=== PATIENT | male | born 1945 | race Caucasian/White ===

== ENCOUNTER → 2019-09-15 | Outpatient (CLI) | payer MEDICARE, OTHER, SELFPAY ==
[2019-09-03 10:18] VITALS: BMI 30.9
--- NOTE | 2019-09-15 14:31 | ECHOD_ITS ---
Reason For Study: CP Procedure This was a 2D Doppler, Color Flow transthoracic echocardiogram. Exam performed in department. Left Ventricle Normal LV size. Moderate concentric left ventricular hypertrophy. Left ventricular systolic function is normal. The estimated ejection fraction is 60 %. Stage 1 diastolic dysfunction. No regional wall motion abnormalities noted. Right Ventricle Normal RV size. Normal systolic function. Atria Normal left atrium. Normal right atrium. Mitral Valve Normal mitral valve. Tricuspid Valve Normal tricuspid valve. Aortic Valve Trisinus/trileaflet aortic valve. Mild (1+) eccentric aortic valve insufficiency. Pulmonic Valve Normal pulmonic valve. Great Vessels Normal aortic root. The pulmonary artery is normal size. Normal inferior vena cava. Pericardium/Pleural No pericardial effusion. MMode/2D Measurements & Calculations LVIDd: 4.5 cm IVSd: 1.4 cm LA dimension: 4.0 cm LVIDs: 2.8 cm LVPWd: 1.5 cm FS: 38.1 % LAV(MOD-bp): 46.9 ml LA A4 area: 16.9 cm2 RA A4 area: 14.5 cm2 LAV(MOD-bp) Indexed: 21.3 ml/m2 LAV(MOD-sp2): 49.0 ml LAV(MOD-sp4): 40.7 ml Time Measurements MV dec time: 0.28 sec Doppler Measurements & Calculations MV E max farhad: 54.0 cm/sec Lat Peak E' Farhad: 6.5 cm/sec Med Peak E' Farhad: 4.4 cm/sec MV A max farhad: 69.1 cm/sec E/E' lat: 8.4 E/E' med: 12.3 MV E/A: 0.78 MV V2 max: 88.6 cm/sec MV P1/2t max farhad: 65.5 cm/sec Ao V2 max: 112.6 cm/sec MV max P.1 mmHg MV P1/2t: 105.3 msec Ao max P.1 mmHg MV V2 mean: 46.4 cm/sec MV dec slope: 182.2 cm/sec2 Ao V2 mean: 70.8 cm/sec MV mean P.0 mmHg MVA(P1/2t): 2.1 cm2 Ao mean P.3 mmHg MV V2 VTI: 28.9 cm Ao V2 VTI: 21.6 cm AI max farhad: 401.4 cm/sec LV V1 max: 97.3 cm/sec PA V2 max: 99.2 cm/sec AI max P.6 mmHg LV V1 max P.8 mmHg LV V1 mean P.4 mmHg AI dec slope: 135.2 cm/sec2 LV V1 mean: 52.8 cm/sec AI P1/2t: 869.7 msec LV V1 VTI: 18.3 cm Interpretation Summary Normal LV size. Moderate concentric left ventricular hypertrophy. Left ventricular systolic function is normal. The estimated ejection fraction is 60 %. Stage 1 diastolic dysfunction. Mild (1+) eccentric aortic valve insufficiency. Ordering Physician: Marcell Garcia Referring Physician: Karen Butler Performed By: Brodwolf, Robert, RCS
== END | disposition home or self-care (01) ==
LOC: CVS 14:30
PROVIDERS: Family Provider Internal Medicine; PCP Internal Medicine; Referring Provider Internal Medicine Cardiovascular Disease; Visit Provider Internal Medicine Cardiovascular Disease
DX: R07.9 Chest pain, unspecified (principal); I10 Essential (primary) hypertension
CPT/HCPCS: 93306

== ENCOUNTER 2019-09-20 07:22 | Day surgery (SDC) | payer MEDICARE, OTHER, SELFPAY ==
[2019-09-03 10:18] VITALS: BMI 30.9
[2019-09-03 12:49] LABS: Absolute Lymphocyte Count 1.72 X10^3/uL (0.83-4.51); Absolute Neutrophil Count 2.5 X10^3/uL (2.0-7.7); Basophil# 0.05 X10^3/uL; Hematocrit 44.7 % (40-54); Hemoglobin 15.2 g/dL (13.0-16.5); Lymphocyte # 1.72 X10^3/ul (4.0); Lymphocyte % 34.6 % (19-41); Mean Corpuscular Hgb 31.8 pg (27.0-32.0); Mean Corpuscular Volume 93.5 fL (80-94); Mean Platelet Vol. 10.2 fl (6.2-12.0); Monocyte# 0.52 X10^3/uL; Monocyte% 10.5 % (0-10); NRBC Flagged by Analyzer 0 % (0-5); Neutrophil # 2.47 X10^3/uL (2.7-7.7); Neutrophil % 49.7 % (47-70); Platelet Count 153 K/mm3 (150-450); RBC Distribution Width CV 11.6 % (11.6-14.6); RBC Distribution Width SD 39.8 fl (35.1-43.9); Red Blood Count 4.78 M/mm3 (4.6-6.2)
[2019-09-03 13:24] LABS: Anion Gap 4 (5-15); BNP,B-Type NATRIURETIC PEPTIDE 22.4 pg/mL (0-100); BUN 17 mg/dL (7-18); BUN/Creat Ratio 12.8 RATIO (10-20); Calcium,Total 8.9 mg/dL (8.5-10.1); Chloride 108 mmol/L (98-107); Creatinine, Serum 1.33 mg/dL (0.70-1.30); EST Glomerular Filtration Rate 56 mL/min (>60); Est Glom Filt Rate - Afr Amer 68 mL/min (>60); Glucose 97 mg/dL (74-106); Potassium 4.2 mmol/L (3.5-5.1); Sodium Level 140 mmol/L (136-145); Thyroid Stim Hormone (TSH) 1.27 uIU/mL (0.358-3.74)
[2019-09-17 09:10] VITALS: BMI 30.9
--- NOTE | 2019-09-20 09:09 | CL.D_ITS ---
Patient Name: JOSE R PLATT Study Date: 09/20/2019 Performing: Marcell Garcia MD Ht: 72 inches 183 cm : 1945 Wt: 227.4 lbs 103 kg Age: 74 Gender: male BSA: 2.25 PROCEDURE(S) PERFORMED HR56-SGV/COR/LV CLINICAL PROFILE AND INDICATIONS Indications: Suspected CAD Heart Failure: None Stress/Imaging Stress/Image Study Performed: No CAD Presentations: Stable angina. CONCLUSIONS Minimal non obstructive CAD RECOMMENDATIONS Medical therapy DESCRIPTION OF PROCEDURE The patient arrived to the procedure lab. The risks and benefits of the procedure as well as a full d escription of our services here and current unavailability of surgical backup were fully explained to the patient and/or their significant other prior to the catheterization. The Timeout was completed, verifying the correct patient and procedure. The patient's procedural site was prepped and draped in the usual fashion. Local anesthetic was given subcutaneously to right radial region with Lidocaine 2% . Using a modified Seldinger technique, arterial access was obtained via the right radial artery, a 6 Fr sheath was inserted. Left Coronary Artery selective angiography was performed in multiple views u sing a 5 Fr. 4.0 Seligman catheter. Right Coronary Artery selective angiography was then performed in mu ltiple views using a 5 Fr. 4.0 Seligman catheter. Left Ventriculography was performed in SIMS projection using a 5 Fr. Pigtail catheter. LV to AO pullback pressures were then recorded.The arterial sheath was pulled and a TR Band was applied for hemostasis CORONARY ANGIOGRAPHY DOMINANCE: Right Dominant LEFT HEART ASSESSMENT Left Ventricular Ejection Fraction: by LV Gram 60 % Normal LV wall motion Normal Left Ventricular systolic function LEFT MAIN: Angiographically normal LEFT ANTERIOR DESCENDING ARTERY: Mild luminal irregularities less than 30% CIRCUMFLEX ARTERY: Mild luminal irregularities RIGHT CORONARY ARTERY: Mild luminal irregularities COMPLICATIONS No Complications PROCEDURE MEDICATIONS Fentanyl 50 mcg IV Versed 1 mg IV Versed 1 mg IV Oxygen: 2 L/min via nasal cannula Heparin diluted in 23cc Heparinized saline. Patient given 6.6cc IA of this solution. 09/20/2019 08:4 2:11 SUMMARY OF HEMODYNAMIC DATA Time AIR REST ECG 07:48:00 AO 117/74 (91) SA 08:44:30 LV 138/1, 11 08:55:44 LV 133/1, 10 08:55:50 LV 131/2, 11 08:56:44 LV 142/3, 12 08:56:50 LVp 141/-1, 9 08:56:53 AOp 144/75 (101) 08:56:58 Signed By Marcell Garcia MD On 09/20/2019 09:08:58 Marcell Garcia MD
== END 2019-09-20 11:25 | disposition home or self-care (01) ==
LOC: CLSP 07:23
PROVIDERS: Family Provider Internal Medicine; PCP Internal Medicine; Referring Provider Internal Medicine Cardiovascular Disease; Visit Provider Internal Medicine Cardiovascular Disease
DX: R07.9 Chest pain, unspecified (principal); I10 Essential (primary) hypertension; R53.83 Other fatigue; R06.02 Shortness of breath; I34.1 Nonrheumatic mitral (valve) prolapse; Z79.82 Long term (current) use of aspirin; Z79.899 Other long term (current) drug therapy
CPT/HCPCS: 36415; 80048; 83880; 84443; 85025; 93458; 99152; 99153; J7040; C1769; C1894; Q9967

== ENCOUNTER → 2019-10-06 | Outpatient (CLI) | payer MEDICARE, OTHER, SELFPAY ==
[2019-09-17 09:10] VITALS: BMI 30.9
--- NOTE | 2019-10-07 10:18 | PFT ---
INTRODUCTION: The patient is a 74-year-old male that presents for pulmonary function studies secondary to a diagnosis of shortness of breath. Respiratory therapy reports good patient effort. Bronchodilators were used during testing. INTERPRETATION: Forced expiration spirometry demonstrates no evidence of a large airways obstructive ventilatory defect. There was no significant response to aerosolized bronchodilators, based upon strict ATS criteria. Spirograms are of good quality and plateau gradually indicating slow emptying of the lungs. Body plethysmography was performed and reveals a decreased TLC to 5.09 L, 79% of predicted, indicative of a mild restrictive ventilatory defect. The remainder of the lung volumes are symmetrically reduced. Diffusing capacity by single breath CO is within normal limits at 85% of predicted. IMPRESSION: Isolated mild restrictive ventilatory impairment.
== END | disposition home or self-care (01) ==
LOC: PSN 06:45
PROVIDERS: Family Provider Internal Medicine; PCP Internal Medicine; Referring Provider Internal Medicine; Visit Provider Internal Medicine
DX: R06.02 Shortness of breath (principal)
CPT/HCPCS: 94060; 94726; 94729

== ENCOUNTER → 2021-04-23 14:18 | Outpatient (CLI) | payer MEDICARE, OTHER, SELFPAY ==
[2020-08-30 15:23] VITALS: BMI 32.3
[2021-04-23 14:18] VITALS: BMI 29.8
--- NOTE | 2021-04-23 14:21 | CT_ITS ---
STUDY: CT SCAN SHOULDER RIGHT REASON FOR EXAM: Male, 75 years old. Primary osteoarthritis, right shoulder RADIATION DOSAGE (If Supplied By Facility): CTDIvol = ( 28.40 ) mGy, DLP = ( 714.25 ) mGycm. Individualized dose optimization techniques were used for this CT.? TECHNIQUE: Multiple axial tomographic images were obtained without intravenous contrast administration. Coronal and sagittal reconstruction was obtained as well. COMPARISON: None. FINDINGS: Mild degree of the degenerative changes of the acromioclavicular joint. The glenohumeral joint is unremarkable. No evidence of joint effusion. CT/Extremity Upper without Contra IMPRESSION: Mild degree of osteoarthritis involving the acromioclavicular joint. Electronically Signed: Froylan Castro MD at 15:43 EDT , Service support ,
== END ==
PROVIDERS: PCP Student in an Organized Health Care Education/Training Program; Referring Provider Specialist; Visit Provider Specialist
DX: M19.011 Primary osteoarthritis, right shoulder (principal)
CPT/HCPCS: 73200

== ENCOUNTER 2021-06-13 05:46 | Day surgery (SDC) | payer MEDICARE, OTHER, SELFPAY ==
[2020-08-30 15:23] VITALS: BMI 32.3
[2021-04-23 14:18] VITALS: BMI 29.8
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
[2021-06-01 16:16] LABS: International Normalized Ratio 1.1; Partial Thromboplast Time 27.7 Seconds (24.1-36.2)
[2021-06-01 16:38] LABS: AST(SGOT) 18 U/L (15-37); Alanine Aminotransfer ALT/SGPT 25 U/L (16-61); Alkaline Phosphatase 77 U/L (45-117); Bilirubin, Direct 0.24 mg/dL (0.00-0.30); Globulin 3.3 g/dL (2.2-4.2); Magnesium 1.9 mg/dL (1.6-2.6); Protein, Total 7.3 g/dL (6.4-8.2)
[2021-06-13] VITALS (11 sets, daily range): BP systolic 85–118; BP diastolic 42–82; PULSE 48–80; RESP 16; TEMP 35.5–36.7; O2SAT 92–100; BMI 30.2
[2021-06-13] MEDS: Gabapentin 600 MG Tablet PO (06:00)
[2021-06-13] MEDS: Celecoxib 200 MG Capsule 400 MG PO (06:44)
[2021-06-13] MEDS: Lactated Ringers 1,000 ML 999 ML IV ×2 (06:44→10:31)
[2021-06-13] MEDS: Acetaminophen 500 MG Tablet 1000 MG PO (06:44)
[2021-06-13] MEDS: Lactated Ringers 1,000 ML 75 ML IV (07:42)
[2021-06-13] MEDS: Cefazolin 2 GM in 0.9% Normal Saline 100 ML IV (07:55)
[2021-06-13 08:06] LABS: Bedside Glucose 162 mg/dL (70-110)
[2021-06-13] MEDS: dexAMETHasone 10 MG/ML Vial IV (08:15)
--- NOTE | 2021-06-13 09:08 | OP.PCM_ITS ---
Report of Operation Date of Procedure: 06/13/21 Pre-Operative Diagnosis: Right shoulder osteoarthritis, rotator cuff dysfunction Post-Operative Diagnosis: Right shoulder osteoarthritis, rotator cuff dysfunction Surgery/Procedure Performed:: Right reverse total shoulder replacement Description of Surgical Findings:: Stable shoulder Surgeon: Mike Melissa salvage worker: Junito Chacko Type of Anesthesia: General Anesthesiologist: José Lewis Special Medications: 2 g Ancef, 1 g TXA at incision, 1 g TXA closure, 10 mg Decadron, joint cocktail (5 mg Duramorph, 30 mL of 0.5% Ropivicaine, 1000 units of epinephrine, 30 mg of Toradol) Specimen's removed: Bony cuts Estimated Blood Loss (mL): 100 Fluids Replaced: 600 mL crystalloid Description of Procedure: Components used 1. [place] reunion glenoid baseplate 2. Jolly reunion 36 mm, eccentric 2 mm Glenosphere 3. Jolly reunion 36 mm, 4 mm humeral liner 4. Jolly reunion reverse TSA humeral adapter tray 4 mm 5. [place] reunion humeral stem primary press-fit 14 mm size Brief history/Operative indications: 75yo male with history of R shoulder pain and cuff tear arthropathy. Patient failed conservative measures as mentioned in the H&P. After discussion of risk and benefits of reverse total shoulder replacement including but not limited to blood loss, DVTs, PEs, nerve vessel damage, infection, general risk of anesthesia including loss of life, instability and stiffness patient demonstrating understanding wish to proceed was able to sign informed consent. Medical clearance was obtained. Procedure: On the date of the procedure, patient's R upper extremity was marked in the preoperative area. Patient was taken back to the operating room where they were placed on the table in the supine position. Anesthesia assumed control of the C-spine and airway, then administered anesthetic. All bony prominences were identified well-padded, the head was secured and the patient was placed in the beachchair position at about 35? inclination. Anesthesia remained in control of the C-spine airway throughout the remainder of the procedure. Patient was then appropriately fastened to the table and the R upper extremity was prepped in a sterile fashion. The surgeons then scrubbed. Upon reentering the room, the R upper extremity was draped in a sterile fashion and the incision was marked out. Timeout was called, everyone agreed upon the side, the site, the procedure to be performed, patient identity and antibiotics given. Incision was taken down through skin and subcutaneous tissue, fat down to fascia. The stripe of the deltopectoral interval and cephalic vein were identified and blunt dissection was used to retract the deltoid. The cephalic vein was retracted laterally. Clavipectoral fascia was then incised and a cobra retractor was placed in the wound. The proximal one third of the pectoralis major insertion was released. Pectoralis tendon insertion was used to tenodesed the biceps tendon which was identified in the bicipital groove. Tenodesis was done with #1 Vicryl. Proximally we followed the biceps tendon after transecting it into the rotator interval. The rotator interval was split and the arm was externally rotated. The split was 1 cm medial to the bicipital groove. Subscapularis tendon was released. We released down the anterior portion of the humeral head and a mc elevator was used to release the inferior portion of the humeral head. The arm was externally rotated and the shoulder was dislocated. The humeral head was then cut at its natural retroversion. Once his humeral h ead cut was made humerus was retracted out of the way and the glenoid was exposed. After exposing the glenoid, the labrum and the remaining proximal biceps were debrided. At this time we are able to view the entire outer edge of the glenoid. A central pin was placed we sequentially reamed over this central pin to 32 mm. Once this was completed the central screw was measured and found to be. The glenoid baseplate was screwed into place. Wound was closely irrigated out with normal saline we then drilled sequentially for 2 screws. Screws were placed superiorly and inferiorly and tightened down the screws. Once the screws were appropriately tightened into place the glenoid baseplate was compressed against the exposed subchondral bone. A 36 mm glenosphere was impacted into place engaging the Lee taper. Attention was then turned towards the humerus. The humerus was again externally rotated exposing the proximal portion of the humerus. Central canal finder was then used to open up the canal. We reamed to a 14 mm reamer. We then broached to a 14 mm stem. We trialed the 4 mm liner, with the 4 mm humeral baseplate. We obtained an adequate reduction at this time with a nice stable shoulder. Good internal rotation to the gluteus, forward elevation to 140?, external rotation to 20?. Final components were then assembled on the back table, trials were removed and the wound was copiously irrigated with normal saline after dislocating the shoulder. Once the final components were assembled they were impacted into place. Shoulder was then reduced and found to be stable with good range of motion. Subscapularis tendon repaired using #2 FiberWire. The wound was with chlorhexidine solution then copiously irrigated out with a 1 L normal saline lavage. The deltopectoral fascia was then closed using #1 Vicryl skin was closed using 2-0 Vicryl interrupted sutures and final skin closure was done with 3-0 Monocryl. Steri-Strips are placed for final skin closure. Sterile dressing was placed patient was then placed in a sling and awakened by anesthesia. Patient was then transferred to the PACU for recovery. Postoperative plan: Patient will be admitted to the hospital overnight. They will get physical therapy starting in 2 weeks with normal postoperative regimen. Patient will be placed on [] for DVT prophylaxis. The first postoperative appointment will be i n 2 weeks for wound check and initiation of phase 1 physical therapy. During the course of the procedure the physician technical services assistant played a vital role. His intimate knowledge of my steps in the procedure aided in safe and expedient completion of the procedure. The PA played a vital rolls in positioning particularly in obtaining the appropriate beach chair position and securing the patient's body and head to the table. The PA was also vital in the retraction of soft tissues during the exposure and especially the glenoid work as this is a vital part of the procedure to prevent neurovascular damage. the PA was also vital and protecting soft tissues during times of bony cuts and reaming. He also played a vital role in closure with my direct supervision. The PA was also important during reduction and dislocation of the joint and trials intraoperatively. Complications No intraoperative complications Admit VTE Documentation VTE Present on Admission: No VTE Mechan Device Prophylaxis: SCD's VTE Pharm Prophylaxis ordered?: Yes
--- NOTE | 2021-06-13 10:20 | RAD_ITS ---
STUDY: X-RAY - RIGHT SHOULDER REASON FOR EXAM: Postoperative evaluation of right shoulder arthroplasty. TECHNIQUE: 2 view(s) of the shoulder. COMPARISON: None. FINDINGS: There is a reverse shoulder arthroplasty without evidence of complication. There is acromioclavicular arthrosis. Normal acromion. There is postoperative gas in the soft tissues. Normal visualized pulmonary apex. RAD/Shoulder min 2 Views IMPRESSION: Uncomplicated right shoulder arthroplasty. Electronically Signed: Marciano Barrientos MD at 13:06 EDT Tel , Service support ,
[2021-06-13] MEDS: oxyCODONE 5 MG Tablet PO (11:41)
[2021-06-13] MEDS: Cefazolin 1 GM/50 ML BAG IV (12:30)
== END 2021-06-13 15:01 | disposition home or self-care (01) ==
LOC: SDC 05:46 → AC 05:47
PROVIDERS: Anesthesiology; PCP Student in an Organized Health Care Education/Training Program; Referring Provider Specialist; Visit Provider Specialist
PROC: (CPT 23472; principal; 2021-06-13 07:30)
DX: M19.011 Primary osteoarthritis, right shoulder (principal); M75.101 Unspecified rotator cuff tear or rupture of right shoulder, not specified as traumatic; H91.90 Unspecified hearing loss, unspecified ear; I10 Essential (primary) hypertension; Z79.899 Other long term (current) drug therapy; Z79.82 Long term (current) use of aspirin; I49.9 Cardiac arrhythmia, unspecified
CPT/HCPCS: 01638; 23472; 36415; 73030; 80076; 82962; 83735; 85610; 85730; 87081; 97167; C1713; C1776; J7040; J7120; J2405